=== PATIENT | female | born 1955 | race Caucasian/White ===

== ENCOUNTER 2021-11-22 11:05 | Outpatient (REF) | payer MEDICARE, SELFPAY ==
[2021-11-24 09:06] LABS: Lyme Abs Screen <0.90 index
== END 2021-11-22 11:06 | disposition home or self-care (01) ==
LOC: HO.LAB 11:05
PROVIDERS: PCP Internal Medicine; Visit Provider Psychiatry & Neurology Neurology
DX: G62.9 Polyneuropathy, unspecified (principal)
CPT/HCPCS: 36415; 86617; 86618